=== PATIENT | male | born 1970 | race Caucasian/White ===

== ENCOUNTER 2018-06-30 09:11 | Outpatient (CLI) | payer OTHER | END 2018-06-30 23:59 | disposition home or self-care (01) | LOC: CFH 09:11 | PROVIDERS: ATTEND Internal Medicine Cardiovascular Disease | DX: I10 Essential (primary) hypertension (principal); E11.9 Type 2 diabetes mellitus without complications; Z87.891 Personal history of nicotine dependence | CPT/HCPCS: 93306 ==

== ENCOUNTER 2018-07-21 12:46 | Outpatient (CLI) | payer OTHER ==
[2018-07-21] MEDS ORDERED: GLIP10TA13 PO (13:18)
[2018-07-21] MEDS ORDERED: METF500T17 PO (13:18)
[2018-07-21] MEDS ORDERED: ATOR10TA9 PO (13:18)
[2018-07-21] MEDS ORDERED: POTA99TA2 PO (13:18)
[2018-07-21] MEDS ORDERED: LISI-170 PO (13:18)
[2018-07-21] MEDS ORDERED: ASPI-496 PO (13:18)
[2018-07-21] MEDS ORDERED: SEMA0.25 INJ (13:18)
[2018-07-21] MEDS ORDERED: SITA100T PO (13:18)
[2018-07-21] MEDS ORDERED: MULT-658 PO (13:18)
[2018-07-21] MEDS ORDERED: DOCU-131 PO (13:27)
[2018-07-21 13:36] LABS: ALANINE AMINOTRANSFERASE 43 U/L (12-78); ANION GAP 9 mmol/L (5-15); CALCIUM 8.8 mg/dL (8.5-10.1); CHLORIDE 108 mmol/L (98-107); CREATININE 1.36 mg/dL (0.7-1.3)
[2018-07-21 13:38] LABS: ALKALINE PHOSPHATASE 66 U/L (45-117); BILIRUBIN,TOTAL 0.3 mg/dL (0.2-1.0); TOTAL PROTEIN 7.3 g/dL (6.4-8.2)
== END 2018-07-21 23:59 | disposition home or self-care (01) ==
LOC: STAR 12:46
PROVIDERS: ATTEND Surgery
DX: Z01.818 Encounter for other preprocedural examination (principal); K46.0 Unspecified abdominal hernia with obstruction, without gangrene
CPT/HCPCS: 36415; 80053; 93005

== ENCOUNTER 2018-07-28 06:01 | Day surgery (SDC) | payer OTHER ==
[~2018-07-28] VITALS: Ht 182.9 cm; Wt 110.0 kg
[~2018-07-28 06:01] MED LIST: ASPI-496 PO; ATOR10TA9 PO; DOCU-131 PO; GLIP10TA13 PO; LISI-170 PO; METF500T17 PO; MULT-658 PO; POTA99TA2 PO; SEMA0.25 INJ; SITA100T PO
[2018-07-28] MEDS ORDERED: LACTATED RINGERS 1,000 ML IV SCH (06:19)
[2018-07-28 06:22] VITALS: BP 129/84
[2018-07-28] MEDS ORDERED: EPINEPHRINE 1 MG/ML, 1ML ONE (06:49)
[2018-07-28] MEDS ORDERED: BUPIVACAINE/PF 0.5% ONE (06:49)
[2018-07-28] MEDS ORDERED: FENTANYL PF 100 MCG/2ML ONE ×4 (07:16→09:59)
[2018-07-28] MEDS ORDERED: MIDAZOLAM 1 MG/ML, 2ML ONE (07:16)
[2018-07-28] MEDS ORDERED: ONDANSETRON 2MG/ML, 2ML ONE (07:23)
[2018-07-28] MEDS ORDERED: SUGAMMADEX 200 MG/2 ML IVPush ONE ×2 (07:23→07:44)
[2018-07-28] MEDS ORDERED: PROPOFOL 10 MG/ML, 20ML ONE ×2 (07:38→08:18)
[2018-07-28] MEDS ORDERED: ROCURONIUM 10MG/ML,5ML ONE (07:38)
[2018-07-28] MEDS ORDERED: EPHEDRINE 50 MG/ML, 1ML ONE (07:38)
[2018-07-28] MEDS ORDERED: PHENYLEPHRINE 10 MG/ML ONE (07:38)
[2018-07-28] MEDS ORDERED: CEFAZOLIN 1,000 MG ONE (09:00)
[2018-07-28] MEDS: FENTANYL PF 100 MCG/2ML IV PRN ×2 (10:00→10:10)
[2018-07-28] MEDS ORDERED: OXYcodone 5 MG/5 ML ORAL.SOL UDC ONE (10:00)
[2018-07-28] MEDS ORDERED: MEPERIDINE/PF 25MG/ML,1ML ONE (10:03)
[2018-07-28] MEDS: MEPERIDINE/PF 25MG/0.5ML IVPush PRN ×2 (10:05→10:22)
[2018-07-28] MEDS ORDERED: ACETAMINOPHEN 325 MG TABLET PO PRN (10:30)
[2018-07-28] MEDS ORDERED: HYDROcodone/APAP 7.5-325MG/15ML UDC PO PRN (10:30)
[2018-07-28] MEDS ORDERED: OXYcodone 5 MG/5 ML ORAL.SOL UDC PO PRN ×2 (10:30→14:30)
[2018-07-28] MEDS ORDERED: HYDROmorphone 2 MG/ML, 1ML IVPush PRN (10:30)
[2018-07-28] MEDS ORDERED: METHOCARBAMOL 1,000 MG in DEXTROSE 5% 100 ML IV SCH (10:30)
[2018-07-28] MEDS ORDERED: MORPHINE SULFATE 4 MG/ML, 1ML IVPush PRN (10:30)
[2018-07-28] MEDS ORDERED: IBUPROFEN 800 MG TABLET PO PRN (14:00)
== END 2018-07-28 14:35 | disposition home or self-care (01) ==
LOC: OUT 06:01
PROVIDERS: ATTEND Surgery
DX: K42.0 Umbilical hernia with obstruction, without gangrene (principal); K91.72 Accidental puncture and laceration of a digestive system organ or structure during other procedure; E11.9 Type 2 diabetes mellitus without complications; I10 Essential (primary) hypertension; E78.5 Hyperlipidemia, unspecified; G47.33 Obstructive sleep apnea (adult) (pediatric); Z72.89 Other problems related to lifestyle; Z79.82 Long term (current) use of aspirin; Z79.84 Long term (current) use of oral hypoglycemic drugs; Z79.899 Other long term (current) drug therapy; Z87.891 Personal history of nicotine dependence; Z98.52 Vasectomy status; Z98.890 Other specified postprocedural states; Z83.3 Family history of diabetes mellitus; Z80.1 Family history of malignant neoplasm of trachea, bronchus and lung; Y83.8 Other surgical procedures as the cause of abnormal reaction of the patient, or of later complication, without mention of misadventure at the time of the procedure
CPT/HCPCS: 49653; 82962; C1781; J0171; J0690; J2175; J2250; J2370; J2405; J2704; J2800; J3010; J7120; S2900

== ENCOUNTER → 2019-11-19 | Outpatient (CLI) | payer OTHER | END | disposition home or self-care (01) | LOC: CFH 11:43 | PROVIDERS: ATTEND Registered Nurse | DX: R06.02 Shortness of breath (principal); Z68.31 Body mass index [BMI] 31.0-31.9, adult | CPT/HCPCS: 71046 ==